=== PATIENT | male | born 1940 | race Caucasian/White ===

== ENCOUNTER 2019-05-03 09:45 | Outpatient (CLI) | payer OTHER ==
[~2019-05-03 09:45] MED LIST: ASPIR 8181 MG PO; COZAAR25 MG PO; LIPITOR20 MG PO; NABUMETONE500 MG PO; NEURONTIN600 MG PO; PERCOCET 5/3251 TAB PO; TOPROL XL25 M1 PO
== END 2019-05-03 15:00 | disposition home or self-care (01) ==
LOC: LAB 09:45
DX: D68.61 Antiphospholipid syndrome (principal); E72.11 Homocystinuria; D68.62 Lupus anticoagulant syndrome; D68.318 Other hemorrhagic disorder due to intrinsic circulating anticoagulants, antibodies, or inhibitors; D51.3 Other dietary vitamin B12 deficiency anemia; D51.8 Other vitamin B12 deficiency anemias; C46.7 Kaposi's sarcoma of other sites; I73.89 Other specified peripheral vascular diseases; I10 Essential (primary) hypertension; Z98.61 Coronary angioplasty status; D50.8 Other iron deficiency anemias; D51.1 Vitamin B12 deficiency anemia due to selective vitamin B12 malabsorption with proteinuria

== ENCOUNTER → 2019-07-19 | Outpatient (CLI) | payer OTHER | END | disposition home or self-care (01) | LOC: RAD 09:17 | DX: R31.0 Gross hematuria (principal) ==

== ENCOUNTER 2019-09-23 13:40 | Emergency (ER) | payer OTHER ==
[~2019-09-23] VITALS: Ht 172.7 cm; Wt 93.4 kg
[2019-09-23] MEDS ORDERED: PLAVIX75 MG PO (13:50)
[2019-09-23] MEDS ORDERED: DOLOGEN CAPLET1 EACH PO (17:23)
== END 2019-09-23 17:29 | disposition home or self-care (01) ==
LOC: ER 13:40
DX: S80.02XA Contusion of left knee, initial encounter (principal); S80.01XA Contusion of right knee, initial encounter; S00.83XA Contusion of other part of head, initial encounter; W18.39XA Other fall on same level, initial encounter; Y93.89 Activity, other specified; Y92.89 Other specified places as the place of occurrence of the external cause; Y99.8 Other external cause status

== ENCOUNTER 2020-02-09 09:27 | Outpatient (CLI) | payer OTHER ==
[~2020-02-09 09:27] MED LIST changes: +DOLOGEN CAPLET1 EACH PO; +PLAVIX75 MG PO
== END 2020-02-09 09:42 | disposition home or self-care (01) ==
LOC: NUCLEAR 09:27
PROVIDERS: ATTEND Internal Medicine Hematology & Oncology
DX: I70.213 Atherosclerosis of native arteries of extremities with intermittent claudication, bilateral legs (principal); E72.11 Homocystinuria; E72.12 Methylenetetrahydrofolate reductase deficiency; D68.318 Other hemorrhagic disorder due to intrinsic circulating anticoagulants, antibodies, or inhibitors; D51.3 Other dietary vitamin B12 deficiency anemia; D51.8 Other vitamin B12 deficiency anemias; C46.0 Kaposi's sarcoma of skin; I10 Essential (primary) hypertension; Z98.61 Coronary angioplasty status; I73.89 Other specified peripheral vascular diseases

== ENCOUNTER 2020-02-10 09:40 | Outpatient (CLI) | payer OTHER | END 2020-02-10 10:05 | disposition home or self-care (01) | LOC: NUCLEAR 09:40 | PROVIDERS: ATTEND Internal Medicine Hematology & Oncology | DX: I82.493 Acute embolism and thrombosis of other specified deep vein of lower extremity, bilateral (principal); I70.213 Atherosclerosis of native arteries of extremities with intermittent claudication, bilateral legs; Z98.61 Coronary angioplasty status; I73.89 Other specified peripheral vascular diseases; C46.0 Kaposi's sarcoma of skin; D51.8 Other vitamin B12 deficiency anemias; D51.3 Other dietary vitamin B12 deficiency anemia; D68.318 Other hemorrhagic disorder due to intrinsic circulating anticoagulants, antibodies, or inhibitors; E72.11 Homocystinuria; E72.12 Methylenetetrahydrofolate reductase deficiency ==

== ENCOUNTER 2020-09-15 15:53 | Emergency (ER) | payer OTHER ==
[~2020-09-15] VITALS: Ht 172.7 cm; Wt 93.9 kg
== END 2020-09-15 22:49 | disposition home or self-care (01) ==
LOC: ER 15:53
DX: S40.021A Contusion of right upper arm, initial encounter (principal); L03.116 Cellulitis of left lower limb; I89.0 Lymphedema, not elsewhere classified; I87.2 Venous insufficiency (chronic) (peripheral); I70.291 Other atherosclerosis of native arteries of extremities, right leg; X58.XXXA Exposure to other specified factors, initial encounter; Y93.89 Activity, other specified; Y92.89 Other specified places as the place of occurrence of the external cause; Y99.8 Other external cause status

== ENCOUNTER 2020-09-26 08:49 | Outpatient (CLI) | payer OTHER | END 2020-09-26 08:54 | disposition home or self-care (01) | LOC: SONOGRAMA 08:49 | DX: G56.21 Lesion of ulnar nerve, right upper limb (principal); M71.21 Synovial cyst of popliteal space [Baker], right knee; M25.521 Pain in right elbow; M25.561 Pain in right knee ==

== ENCOUNTER 2021-03-25 09:53 | Outpatient (CLI) | payer OTHER | END 2021-03-25 09:58 | disposition home or self-care (01) | LOC: TOM 09:53 | DX: J84.112 Idiopathic pulmonary fibrosis (principal); R06.02 Shortness of breath; E66.01 Morbid (severe) obesity due to excess calories ==

== ENCOUNTER 2021-04-08 13:23 | Outpatient (CLI) | payer OTHER | END 2021-04-08 13:28 | disposition home or self-care (01) | LOC: RAD 13:23 | PROVIDERS: ATTEND Orthopaedic Surgery | DX: M25.511 Pain in right shoulder (principal); M25.561 Pain in right knee; M25.562 Pain in left knee ==

== ENCOUNTER 2021-04-17 15:17 | Outpatient (CLI) | payer OTHER | END 2021-04-17 16:41 | disposition home or self-care (01) | LOC: TOM 15:17 | PROVIDERS: ATTEND Orthopaedic Surgery | DX: G44.89 Other headache syndrome (principal); I67.6 Nonpyogenic thrombosis of intracranial venous system; I82.890 Acute embolism and thrombosis of other specified veins ==

== ENCOUNTER → 2021-04-22 07:48 | Outpatient (CLI) | payer OTHER | END | disposition home or self-care (01) | LOC: MRI 07:45 | PROVIDERS: ATTEND Internal Medicine Hematology & Oncology | DX: G93.89 Other specified disorders of brain (principal); E72.11 Homocystinuria; D68.318 Other hemorrhagic disorder due to intrinsic circulating anticoagulants, antibodies, or inhibitors; D51.3 Other dietary vitamin B12 deficiency anemia; E72.12 Methylenetetrahydrofolate reductase deficiency; D51.8 Other vitamin B12 deficiency anemias; C46.0 Kaposi's sarcoma of skin; I73.89 Other specified peripheral vascular diseases; Z98.61 Coronary angioplasty status; I70.213 Atherosclerosis of native arteries of extremities with intermittent claudication, bilateral legs | CPT/HCPCS: 70552; A9575 ==

== ENCOUNTER 2021-04-24 10:29 | Outpatient (CLI) | payer OTHER | END 2021-04-24 10:30 | disposition home or self-care (01) | LOC: LAB 10:29 | PROVIDERS: ATTEND Internal Medicine Hematology & Oncology | DX: I10 Essential (primary) hypertension (principal); R74.02 Elevation of levels of lactic acid dehydrogenase [LDH]; D50.8 Other iron deficiency anemias; D51.8 Other vitamin B12 deficiency anemias; D68.8 Other specified coagulation defects; D69.1 Qualitative platelet defects; D68.62 Lupus anticoagulant syndrome; D68.318 Other hemorrhagic disorder due to intrinsic circulating anticoagulants, antibodies, or inhibitors; D51.3 Other dietary vitamin B12 deficiency anemia; C46.0 Kaposi's sarcoma of skin; I73.89 Other specified peripheral vascular diseases; Z98.61 Coronary angioplasty status; I70.213 Atherosclerosis of native arteries of extremities with intermittent claudication, bilateral legs ==

== ENCOUNTER 2021-05-06 11:59 | Outpatient (CLI) | payer OTHER | END 2021-05-06 12:00 | disposition home or self-care (01) | LOC: MRI 11:59 | PROVIDERS: ATTEND Orthopaedic Surgery | DX: M75.121 Complete rotator cuff tear or rupture of right shoulder, not specified as traumatic (principal); M25.511 Pain in right shoulder | CPT/HCPCS: 73221 ==

== ENCOUNTER 2021-08-06 11:20 | Outpatient (CLI) | payer OTHER | END 2021-08-06 11:31 | disposition home or self-care (01) | LOC: LAB 11:20 | DX: I10 Essential (primary) hypertension (principal); I73.9 Peripheral vascular disease, unspecified; J84.01 Alveolar proteinosis; D68.61 Antiphospholipid syndrome ==

== ENCOUNTER → 2021-11-11 11:01 | Outpatient (CLI) | payer OTHER | END | disposition home or self-care (01) | LOC: LAB 11:01 | PROVIDERS: ATTEND Specialist | DX: N39.9 Disorder of urinary system, unspecified (principal); N40.1 Benign prostatic hyperplasia with lower urinary tract symptoms; D40.0 Neoplasm of uncertain behavior of prostate; D64.9 Anemia, unspecified; J45.998 Other asthma ==

== ENCOUNTER → 2021-11-20 10:44 | Outpatient (CLI) | payer OTHER ==
[~2021-11-20 10:44] MED LIST changes: +CELEBREX200MG PO
== END | disposition home or self-care (01) ==
LOC: LAB 10:44
PROVIDERS: ATTEND Internal Medicine Hematology & Oncology
DX: D50.8 Other iron deficiency anemias (principal); I10 Essential (primary) hypertension; R74.02 Elevation of levels of lactic acid dehydrogenase [LDH]; K76.89 Other specified diseases of liver; D51.8 Other vitamin B12 deficiency anemias; D68.59 Other primary thrombophilia; D68.61 Antiphospholipid syndrome

== ENCOUNTER → 2021-12-31 10:05 | Outpatient (CLI) | payer OTHER ==
[~2021-12-31 10:05] MED LIST changes: +ABANEU-SL TABL1 EACH; +AZELASTINE137 MCG/0.; +ENDOCET 7.5-321 EACH PO; +GENTAFAIR5 ML; +LATANOPROST2.5 ML; +LOSARTAN POTASS25 MG PO; +LUMIGAN2.5 M1; +METOPROLOL SUCC50 MG; +ROSUVASTATIN CA10 MG
== END | disposition home or self-care (01) ==
LOC: NUCLEAR 10:00
PROVIDERS: ATTEND Physical Medicine & Rehabilitation
DX: I87.2 Venous insufficiency (chronic) (peripheral) (principal)

== ENCOUNTER 2022-01-07 14:28 | Outpatient (CLI) | payer OTHER ==
[~2022-01-07 14:28] MED LIST changes: -ABANEU-SL TABL1 EACH; -AZELASTINE137 MCG/0.; -GENTAFAIR5 ML; -LATANOPROST2.5 ML; -LOSARTAN POTASS25 MG PO; -LUMIGAN2.5 M1; -METOPROLOL SUCC50 MG; -ROSUVASTATIN CA10 MG
== END 2022-01-08 10:38 | disposition home or self-care (01) ==
LOC: MRI 14:28
DX: M25.512 Pain in left shoulder (principal)
CPT/HCPCS: 73221

== ENCOUNTER 2022-01-24 12:30 | Inpatient (IN) | payer OTHER ==
[~2022-01-24] VITALS: Ht 172.7 cm; Wt 81.6 kg
[2022-01-24] MEDS ORDERED: LOSARTAN POTASS25 MG PO (12:45)
[2022-01-28] MEDS ORDERED: METOPROLOL SUCC50 MG (13:17)
[2022-01-28] MEDS ORDERED: AZELASTINE137 MCG/0. (13:17)
[2022-01-28] MEDS ORDERED: LATANOPROST2.5 ML (13:17)
[2022-01-28] MEDS ORDERED: GENTAFAIR5 ML (13:17)
[2022-01-28] MEDS ORDERED: LUMIGAN2.5 M1 (13:17)
[2022-01-28] MEDS ORDERED: ABANEU-SL TABL1 EACH (13:18)
[2022-01-28] MEDS ORDERED: ROSUVASTATIN CA10 MG (13:18)
== END 2022-02-13 14:25 | disposition home or self-care (01) | DRG 593 ==
LOC: ER 12:30 → SEC-K 01-25 13:22 → SURG 01-25 13:22 → SURH 02-04 16:04
PROVIDERS: ADMIT Specialist; ATTEND Specialist
PROC: B54BZZ3 Ultrasonography of Right Lower Extremity Veins, Intravascular (ICD-10-PCS; 2022-01-24)
PROC: 02HV33Z Insertion of Infusion Device into Superior Vena Cava, Percutaneous Approach (ICD-10-PCS; 2022-01-27)
PROC: 0HBKXZZ Excision of Right Lower Leg Skin, External Approach (ICD-10-PCS; principal; 2022-01-30)
PROC: 2W1QX6Z Compression of Right Lower Leg using Pressure Dressing (ICD-10-PCS; 2022-01-30)
DX: L97.818 Non-pressure chronic ulcer of other part of right lower leg with other specified severity (principal); L03.115 Cellulitis of right lower limb; T81.49XA Infection following a procedure, other surgical site, initial encounter; B96.29 Other Escherichia coli [E. coli] as the cause of diseases classified elsewhere; B96.89 Other specified bacterial agents as the cause of diseases classified elsewhere; L08.89 Other specified local infections of the skin and subcutaneous tissue; Z96.651 Presence of right artificial knee joint; Z20.822 Contact with and (suspected) exposure to COVID-19

== ENCOUNTER → 2022-04-21 14:24 | Outpatient (CLI) | payer OTHER ==
[~2022-04-21 14:24] MED LIST changes: +ABANEU-SL TABL1 EACH; +AZELASTINE137 MCG/0.; +GENTAFAIR5 ML; +LATANOPROST2.5 ML; +LOSARTAN POTASS25 MG PO; +LUMIGAN2.5 M1; +METOPROLOL SUCC50 MG; +ROSUVASTATIN CA10 MG
== END | disposition home or self-care (01) ==
LOC: LAB 14:24
PROVIDERS: ATTEND Orthopaedic Surgery
DX: D64.9 Anemia, unspecified (principal); N39.0 Urinary tract infection, site not specified

== ENCOUNTER 2022-04-29 11:02 | Outpatient (CLI) | payer OTHER | END 2022-04-29 11:07 | disposition home or self-care (01) | LOC: LAB 11:02 | PROVIDERS: ATTEND Internal Medicine Hematology & Oncology | DX: D50.8 Other iron deficiency anemias (principal); I10 Essential (primary) hypertension; R74.02 Elevation of levels of lactic acid dehydrogenase [LDH]; K76.89 Other specified diseases of liver; D68.61 Antiphospholipid syndrome; D68.318 Other hemorrhagic disorder due to intrinsic circulating anticoagulants, antibodies, or inhibitors; D51.3 Other dietary vitamin B12 deficiency anemia; D51.8 Other vitamin B12 deficiency anemias; E72.12 Methylenetetrahydrofolate reductase deficiency; I70.213 Atherosclerosis of native arteries of extremities with intermittent claudication, bilateral legs; Z98.61 Coronary angioplasty status ==

== ENCOUNTER → 2022-05-09 | Outpatient (CLI) | payer OTHER | END | disposition home or self-care (01) | LOC: TOM 11:33 | PROVIDERS: ATTEND Internal Medicine Pulmonary Disease | DX: R06.02 Shortness of breath (principal); J84.112 Idiopathic pulmonary fibrosis ==